=== PATIENT | male | born 1965 | race Caucasian/White ===

== ENCOUNTER 2019-02-27 08:47 | Emergency (ER) | payer BC ==
--- NOTE | 2019-02-27 09:05 | UC ---
Cardiac HPI - HPI Summary HPI Summary: 54 yo male has had mild upper sternal pain radiating to neck since yesterday AM He thinks it has been constant but he doesn't notice it when distracted Worse with swallowing Better with burping hx dyspepsia no URI symptoms no SOB no fatigue/weakness/near syncope no N/V no abd pain no back pain - History of Current Complaint Stated Complaint: CHEST PAIN Time Seen by Provider: 02/27/19 08:47 Hx Obtained From: Patient Onset/Duration: Gradual Onset, Lasting Hours Timing: Constant Initial Severity: Mild Current Severity: Mild Pain Intensity: 2 Chest Pain Location: Upper Sternal Character: Pressure/Squeezing Aggravating Factor(s): Other - swallowing Alleviating Factor(s): Other - swallowing Associated Signs & Symptoms: Positive: Chest Pain - Allergy/Home Medications Allergies/Adverse Reactions: Allergies Allergy/AdvReac Type Severity Reaction Status Date / Time shellfish derived Allergy Unknown Vomiting Verified 02/27/19 08:57 Home Medications: Home Medications Aspirin 81 mg CHEW TAB* [Aspirin Low Dose TAB*] 81 mg PO DAILY 02/27/19 [ History Confirmed 02/27/19] Cholesterol Med ?Name 1 tab PO DAILY 02/27/19 [History] Metoprolol Succinate [Kapsp[place] Sprinkle] 25 mg PO DAILY 02/27/19 [History Confirmed 02/27/19] PMH/Surg Hx/FS Hx/Imm Hx Previously Healthy: Yes Endocrine History: Dyslipidemia Cardiovascular History: Hypertension, Other Other Cardiovascular History: PVCs Review of Systems All Other Systems Reviewed And Are Negative: Yes Constitutional: Positive: Negative Skin: Positive: Negative Eyes: Positive: Negative ENT: Positive: Negative Cardiovascular: Positive: Chest Pain Gastrointestinal: Positive: Negative Genitourinary: Positive: Negative Motor: Positive: Negative Neurovascular: Positive: Negative Musculoskeletal: Positive: Negative Neurological: Positive: Negative Psychological: Positive: Negative Physical Exam Triage Information Reviewed: Yes Appearance: Well-Appearing, No Pain Distress, Well-Nourished Vital Signs Reviewed: Yes Eyes: Positive: Conjunctiva Clear ENT: Positive: Hearing grossly normal. Negative: Nasal congestion, Nasal drainage, Trismus, Muffled voice, Hoarse voice Neck: Positive: Supple, Nontender, No Lymphadenopathy Respiratory: Positive: Lungs clear, Normal breath sounds, No respiratory distress, No accessory muscle use Cardiovascular: Positive: RRR, No Murmur Abdomen Description: Positive: Nontender, No Organomegaly Musculoskeletal: Positive: ROM Intact, No Edema Neurological: Positive: Alert Psychological Exam: Normal Skin Exam: Normal Diagnostics - EKG Cardiac Rate: NL Cardiac Rhythm: Sinus: Normal Ectopy: None ST Segment: Normal - Clinical Impression Provider Diagnosis: Chest pain of unknown etiology Discharge - Sign-Out/Discharge Documenting (check all that apply): Patient Departure All imaging exams completed and their final reports reviewed: No Studies - Discharge Plan Condition: Stable Disposition: HOME-RECOMMEND TO ED Referrals: Eileen MORALES,Wilmer Alex [Primary Care Provider] - Additional Instructions: They are expecting you at [facility] . Please go directly from here to there I spoke to Lucia Mcmillan SHROUDMAN - Billing Disposition and Condition Condition: STABLE Disposition: Home-Recommend to ED
[2019-02-27 09:08] VITALS: BP 133/84
[2019-02-27] MEDS ORDERED: Aspirin 81 mg CHEW TAB* 81 MG TAB.CHEW PO ONE (09:25)
== END 2019-02-27 09:37 | disposition home health service (06) ==
LOC: UCCORT 08:47
DX: R07.9 Chest pain, unspecified (principal); I10 Essential (primary) hypertension; Z79.82 Long term (current) use of aspirin; Z79.899 Other long term (current) drug therapy
CPT/HCPCS: 93005; 99202; A9270-GY; G0463